=== PATIENT | male | born 1950 | race Caucasian/White ===

== ENCOUNTER → 2016-12-24 | Outpatient (CLI) | payer OTHER ==
[~2016-12-24] MED LIST: DOCU-94 PO; OXYC-57 PO; SENN-61 PO
[2016-12-24 12:47] LABS: ALT/SGPT 40 U/L (12-78); AST/SGOT 24 U/L (15-37); BLOOD UREA NITROGEN 13 mg/dl (7-18); BUN/CREATININE RATIO 12.9 (10-20); CALCIUM 8.9 mg/dl (8.5-10.1); CARBON DIOXIDE 29 mmol/L (21-32); CHLORIDE 107 mmol/L (98-107); GLUCOSE,FASTING 107 mg/dl (70-99); POTASSIUM 4.3 mmol/L (3.5-5.1); SODIUM 139 mmol/L (136-145)
[2016-12-24 12:49] LABS: ALB/GLOB RATIO 0.9 (0.9-2); ALKALINE PHOSPHATASE 74 U/L (45-117); CHOLESTEROL 182 mg/dl (0-200); CHOLESTEROL/HDL RATIO 4.9; HDL CHOLESTEROL 37 mg/dl; LDL CHOLESTEROL CALCULATED 108 mg/dl; TRIGLYCERIDES 185 mg/dl (0-150); URIC ACID 5.2 mg/dl (2.6-7.2); VERY LOW DENSITY LIPOPROT CALC 37 mg/dl
== END | disposition home or self-care (01) ==
LOC: C.LABPBG 10:30
PROVIDERS: ATTEND Physician Assistant
DX: Z00.00 Encounter for general adult medical examination without abnormal findings (principal); M10.9 Gout, unspecified

== ENCOUNTER 2016-12-31 15:56 | Emergency (ER) | payer OTHER ==
[~2016-12-31] VITALS: Ht 182.9 cm; Wt 98.7 kg
[2016-12-31 16:02] VITALS: TEMP 36.7; Ht 182.9 cm; Wt 98.7 kg
[2016-12-31] MEDS ORDERED: BACITRACIN OINT 15 GM TUBE EXT STA (16:12)
[2016-12-31] MEDS ORDERED: IBUPROFEN 600 MG TAB PO STA (16:12)
[2016-12-31] MEDS ORDERED: OXYCODONE/ACETAMINOPHEN 5-325 TAB PO ONE (16:15)
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
[2016-12-31] MEDS ORDERED: SENN-61 PO (16:47)
[2016-12-31] MEDS ORDERED: OXYC-57 PO (16:47)
[2016-12-31] MEDS ORDERED: DOCU-94 PO (16:47)
[2016-12-31 17:01] VITALS: BP 132/85; PULSE 101; O2SAT 96
== END 2016-12-31 17:02 | disposition home or self-care (01) ==
LOC: C.EDB 15:57 → C.EDC 17:02
DX: T21.12XA Burn of first degree of abdominal wall, initial encounter (principal); T20.17XA Burn of first degree of neck, initial encounter; W40.8XXA Explosion of other specified explosive materials, initial encounter; Y92.000 Kitchen of unspecified non-institutional (private) residence as the place of occurrence of the external cause; J44.9 Chronic obstructive pulmonary disease, unspecified; Z87.891 Personal history of nicotine dependence; Z79.899 Other long term (current) drug therapy

== ENCOUNTER 2017-04-19 16:09 | Emergency (ER) | payer OTHER ==
[~2017-04-19] VITALS: Ht 182.9 cm; Wt 102.0 kg
[~2017-04-19 16:09] MED LIST changes: -DOCU-94 PO; -SENN-61 PO
[2017-04-19 16:12] VITALS: BP 127/90; TEMP 36.6; Ht 182.9 cm; Wt 102.0 kg
[2017-04-19] MEDS ORDERED: GELATIN SPONGE 12-7MM EXT ONE (16:30)
[2017-04-19] MEDS ORDERED: OXYC1TAB3 PO (16:34)
[2017-04-19] MEDS ORDERED: IBUPROFEN 800 MG TAB PO STA (16:51)
[2017-04-19] MEDS ORDERED: VNTHFA/IN INH (16:55)
[2017-04-19] MEDS ORDERED: ALLO100T PO (16:55)
[2017-04-19 17:13] VITALS: PULSE 96; O2SAT 94
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
== END 2017-04-19 17:14 | disposition home or self-care (01) ==
LOC: C.EDB 16:11 → C.EDD 17:14
DX: S61.011A Laceration without foreign body of right thumb without damage to nail, initial encounter (principal); W45.8XXA Other foreign body or object entering through skin, initial encounter; J44.9 Chronic obstructive pulmonary disease, unspecified; Z87.891 Personal history of nicotine dependence